=== PATIENT | male | born 1945 | race Caucasian/White ===

== ENCOUNTER 2020-01-23 07:50 | Inpatient (IN) | payer MEDICARE ==
[~2020-01-23] VITALS: Ht 185.4 cm; Wt 91.5 kg
[2020-01-23 07:59] VITALS: BP 126/90
[2020-01-23 08:08] LABS: ABSOLUTE BASOPHILS 0.1 thou/uL (0.0-0.2); ABSOLUTE EOSINOPHILS 0.4 thou/uL (0.0-0.7); ABSOLUTE LYMPHOCYTES 1.8 thou/uL (0.8-5.3); ABSOLUTE MONOCYTES 0.7 thou/uL (0.0-1.2); ABSOLUTE NEUTROPHILS 3.7 thou/uL (1.6-8.1); BASOPHILS 1.3 %; EOSINOPHILS 6.5 %; HEMATOCRIT 45.6 % (42.0-52.0); HEMOGLOBIN 16.3 gm/dL (14.0-18.0); LYMPHOCYTES 27.2 %; MCH 33.3 pg (26.0-34.0); MCHC 35.8 g/dL (28.0-37.0); MCV 92.9 fL (80.0-100.0); MONOCYTES 10.5 %; MPV 7.1 fl. (7.2-11.1); NUCLEATED RBCS 0 /100WBC; PLATELET COUNT* 208 thou/uL (150-400); POLYS 54.5 %; RDW-CV 13.4 % (10.5-14.5); WBC 6.8 thou/uL (4.0-11.0)
[2020-01-23 08:17] LABS: CALCIUM 8.4 mg/dL (8.5-10.1); CREATININE 1.7 mg/dL (0.6-1.3); POTASSIUM 4.2 mmol/L (3.5-5.1)
[2020-01-23 08:25] LABS: ALBUMIN 3.7 g/dL (3.4-5.0); MAGNESIUM 1.9 mg/dL (1.8-2.4); TOTAL BILIRUBIN 0.4 mg/dL (<0.1-1.0); TOTAL PROTEIN 6.7 g/dL (6.4-8.2)
[2020-01-23 10:59] VITALS: BP 116/70
[2020-01-23 11:15] VITALS: BP 125/77
[2020-01-23 16:00] VITALS: BP 112/70
[2020-01-23 20:10] VITALS: BP 114/75
[2020-01-24] VITALS: BP 116/61
[2020-01-24 04:00] VITALS: BP 113/77
[2020-01-24 05:08] LABS: HEMATOCRIT 43.2 % (42.0-52.0); HEMOGLOBIN 14.9 gm/dL (14.0-18.0); MCH 32.8 pg (26.0-34.0); MCHC 34.5 g/dL (28.0-37.0); MCV 94.8 fL (80.0-100.0); MPV 7.7 fl. (7.2-11.1); RBC 4.56 mil/uL (4.50-6.00); RDW-CV 13.7 % (10.5-14.5); WBC 7.7 thou/uL (4.0-11.0)
[2020-01-24 05:22] LABS: ALBUMIN 2.9 g/dL (3.4-5.0); ALKALINE PHOSPHATASE 74 U/L (46-116); ANION GAP 4 mmol/L (7-16); BUN 18 mg/dL (7-18); CALCIUM 8.4 mg/dL (8.5-10.1); CHLORIDE 106 mmol/L (98-107); CHOLESTEROL 180 mg/dL (<200); CO2 29 mmol/L (21-32); CREATININE 1.5 mg/dL (0.6-1.3); GLUCOSE 92 mg/dL (70-99); HDL CHOLESTEROL 43 mg/dL (>40); LDL CHOLESTEROL 123 mg/dL (<100); POTASSIUM 4.1 mmol/L (3.5-5.1); SERUM ASSESSMENT CLEAR; SGOT 19 U/L (15-37); SGPT 15 U/L (30-65); SODIUM 139 mmol/L (136-145); TC:HDL 4.2 Ratio (Not establshd); TOTAL BILIRUBIN 0.5 mg/dL (<0.1-1.0); TOTAL PROTEIN 6.2 g/dL (6.4-8.2); TRIGLYCERIDE 70 mg/dL (<150); VLDL 14 mg/dL (<40)
[2020-01-24 08:31] VITALS: BP 104/52
--- NOTE | 2020-01-24 10:34 | EKG ---
[place] [address] ELECTROCARDIOGRAM REPORT Name: JOVAN LEVY Room: [address] ADM IN ..#: [id number] Admission: 01/23/20 Attend Phys: Afia Alcantar, Discharge: Date of : 47 Date of Service: 01/23/20 0750 Report #: [id number] THIS REPORT FOR: //name// [facility] ED Test Date: 2020-01-23 Test Time: 07:50:23 Pat Name: JOVAN LEVY Department: Room: [facility] Gender: M Secretary To The Vice President: : 1945 Requested By: John Vargas Order Number: [id number] MD: Varun Fitzpatrick Measurements Intervals [place] Rate: 66 P: 75 MO: 171 QRS: 60 QRSD: 91 T: 87 QT: 412 QTc: 432 Interpretive Statements Sinus rhythm Left atrial enlargement No previous ECG available for comparison Electronically Signed On 01-24-2020 10:33:10 CDT by Varun Fitzpatrick [email or web address] <ELECTRONICALLY SIGNED> By: Varun Fitzpatrick MD, [facility] 01/24/20 1033 0750 0750 Varun Fitzpatrick MD, [facility] /EPI
[2020-01-24] MEDS ORDERED: ASA81BEC PO (12:20)
[2020-01-24] MEDS ORDERED: LIPITOR40 MG PO (12:21)
[2020-01-24 12:57] VITALS: BP 104/52
--- NOTE | 2020-01-24 13:37 | 2DMMODE ---
[place] [address] 2 D/M-MODE ECHOCARDIOGRAM Name: JOVAN LEVY Room: [address] IN [facility]#: [id number] Admission: 01/23/20 Attend Phys: Afia Alcantar, Discharge: Date of : 47 Date of Service: 01/24/20 1335 Report #: [id number] THIS REPORT FOR: cc: FAM - No family physician/PCP FAM - No family physician/PCP Cornell Ibrahim MD [facility] ~ APPROVED REPORT Study performed: 01/24/2020 10:10:08 EXAM: Comprehensive 2D, Doppler, and color-flow Echocardiogram Patient Location: In-Patient Room #: [facility] Status: routine BSA: 2.15 HR: 60 bpm BP: 104/52 mmHg Rhythm: NSR Other Information Study Quality: Good Indications Dyspnea Chest Pain 2D Dimensions IVSd: 11.68 (7-11mm) LVOT Diam: 22.32 (18-24mm) LVDd: 58.80 mm PWd: 9.63 (7-11mm) Ascending Ao: 40.33 (22-36mm) LVDs: 35.89 (25-40mm) Aortic Root: 34.87 mm Volumes Left Atrial Volume (Systole) LA ESV Index: 26.70 mL/m2 Aortic Valve AoV Peak Nguyễn.: 1.56 m/s AO Peak Gr.: 9.71 mmHg LVOT Max P.89 mmHg AO Mean Gr.: 5.33 mmHg LVOT Mean P.15 mmHg LVOT Max V: 1.11 m/s AO V2 VTI: 38.23 cm LVOT Mean V: 0.66 m/s CHELY (VTI): 3.09 cm2 LVOT V1 VTI: 30.17 [place] [address] 2 D/M-MODE ECHOCARDIOGRAM Name: JOVAN LEVY Room: [address] IN .R.#: [id number] Admission: 01/23/20 Attend Phys: Afia Alcantar, Discharge: Date of : 47 Date of Service: 01/24/20 1335 Report #: [id number] AI [place]: 2.01 m/s2 AI PHT: 651.74 ms Mitral Valve E/A Ratio: 0.73 MV Decel. Time: 358.53 ms MV E Max Nguyễn.: 0.66 m/s MV PHT: 103.97 ms MVA (PHT): 2.12 cm2 TDI E/Lateral E': 7.33 E/Medial E': 7.33 Medial E' Nguyễn.: 0.09 m/s Lateral E' Nguyễn.: 0.09 m/s Pulmonary Valve PV Peak Nguyễn.: 0.81 m/s PV Peak Gr.: 2.62 mmHg Left Ventricle The left ventricle is normal size. There is normal LV segmental wall motion. Mild concentric left ventricular hypertrophy. Left ventricular systolic function is normal. LVEF is 55-60%. Grade I - abnormal relaxation pattern. Right Ventricle The right ventricle is normal size. The right ventricular systolic function is normal. Atria The left atrium size is normal. The right atrium size is normal. Aortic Valve Mild aortic valve sclerosis. Mild aortic regurgitation. There is no aortic valvular stenosis. Mitral Valve The mitral valve is normal in structure. Mild mitral regurgitation. No evidence of mitral valve stenosis. Tricuspid Valve The tricuspid valve is normal in structure. Unable to assess PA pressure. Trace tricuspid regurgitation. Pulmonic Valve The pulmonary valve is normal in structure. [place] [address] 2 D/M-MODE ECHOCARDIOGRAM Name: JOVAN LEVY Room: [address] IN [facility]#: [id number] Admission: 01/23/20 Attend Phys: Afia Alcantar, Discharge: Date of : 47 Date of Service: 01/24/20 1335 Report #: [id number] valvular regurgitation. Great Vessels The aortic root is normal in size. The ascending aorta is mildly dilated. IVC is normal in size and collapses >50% with inspiration. Pericardium There is no pericardial effusion. <Conclusion> The left ventricle is normal size. Mild concentric left ventricular hypertrophy. Left ventricular systolic function is normal. LVEF is 55-60%. Grade I - abnormal relaxation pattern. Mild aortic valve sclerosis. Mild aortic regurgitation. Mild mitral regurgitation. Trace tricuspid regurgitation. The ascending aorta is mildly dilated. IVC is normal in size and collapses >50% with inspiration. <ELECTRONICALLY SIGNED> By: Cornell Ibrahim MD, [facility] 01/24/20 1335 1335 1335 Cornell Ibrahim MD, FACC /INF
--- NOTE | 2020-01-24 14:32 | CARDNUC ---
[place] [address] CARDIAC NUCLEAR IMAGING REPORT Name: JOVAN LEVY Room: [address] IN [facility]#: [id number] Admission: 01/23/20 Attend Phys: Afia Alcantar, Discharge: Date of : 47 Date of Service: 01/24/20 1430 Report #: [id number] THIS REPORT FOR: cc: FAM - No family physician/PCP FAM - No family physician/PCP Cornell Ibrahim MD [facility] ~ APPROVED REPORT Imaging Protocol: Stress Tc-99m/Rest Tc-99m 1 day Study performed: 01/23/2020 14:29:00 Indication: Chest pain, Dyspnea. Patient Location: In-Patient Room #: 223 Stress Tech: Madelaine Mcconnell Stress Nurse: Dejah Park RN Ht: 6 ft 1 in Wt: 199 lbs BSA: 2.15 m2 BMI: 26.25 Medical History Medical History: Angina, Current Smoker, PVD, LE tingling, AAA, Irregular HR, Atherosclerosis, Bradycardia, Tremors/shanking. Medications: ASA 325 Mg. Allergies: No known drug allergies Cardiac Risk Factors: Age, Current Smoker, FHX of CAD, SOB, PVD, AAA, Bradycardia. Previous Cardiac Procedures: None Pretest Chest Pain Characteristics: No chest pain Exercise History: Sedentary Physical Disabilities: Tremors/shaking, Weak legs. Resting Data Rest SPECT myocardial perfusion imaging was performed in supine position 30 minutes following the intravenous injection of 10.4 mCi of Tc-99m Sestamibi. Time of rest injection: 09:55 The images were gated to evaluate regional wall motion and calculate left ventricular ejection fraction. Administration Route: IV Administration Site: Right [place] [address] CARDIAC NUCLEAR IMAGING REPORT Name: JOVAN LEVY Room: [address] IN ..#: [id number] Admission: 01/23/20 Attend Phys: Afia Alcantar, Discharge: Date of : 47 Date of Service: 01/24/20 1430 Report #: [id number] Pharmacologic stress test was performed by injecting Regadenoson 0.4 mg IV push over 10-15 seconds immediately followed by the intravenous injection of 32.6 mCi of Tc-99m Sestamibi. Time of stress injection: 11:40 Administration Route: IV Administration Site: Right AC Heart Rate at time of stress injection: 114 bpm. Gated Stress SPECT was performed 40 minutes after stress injection. The images were gated to evaluate regional wall motion and calculate left ventricular ejection fraction. Prone imaging was performed. Stress Test Details Stress Test: Pharmacologic stress testing performed using 0.4 mg of regadenoson per 5 mL given IV over 10 seconds. Reason for pharmacologic stress test: Leg weakness, tremors/shaking.. HR Max Heart Rate (APMHR): 147 bpm Resting HR: 62 bpm Target HR (85% APMHR): 124 bpm Max HR Achieved: 114 bpm % of APMHR: 77 Recovery HR: 102 bpm BP Resting BP: 121/87 mmHg Max BP: 129/70 mmHg Recovery BP: 114/89 mmHg ECG Resting ECG: Sinus Rhythm Stress ECG: Sinus Tachycardia ST Change: None Arrhythmia: None Recovery ECG: Sinus Rhythm Recovery ST Change: None Recovery Arrhythmia: None Clinical Reason for Termination: Completed protocol Stress Symptoms: Headache, Dyspnea with cough, light feeling in legs/weak. Exercise duration: 00 min 00 sec Exercise capacity: 1.00 METs The patient tolerated walking Lexiscan protocol [place] [address] CARDIAC NUCLEAR IMAGING REPORT Name: JOVAN LEVY Room: [address]#: [id number] Admission: 01/23/20 Attend Phys: Afia Alcantar, Discharge: Date of : 47 Date of Service: 01/24/20 1430 Report #: [id number] Nurse Comments A 74 year old male inpatient presented for a sitting Lexiscan r/t chest pain and dyspnea with LE tingling. Test well tolerated. Recovery unremarkable with PO caffeine. Patient was escorted by staff to Nuclear Medicine for imaging. Patient was stable and stated he felt good at that time. Stress ECG Conclusion The baseline 12-lead EKG shows sinus rhythm without significant ST segment or T-wave abnormality. EKGs obtained during and post walking Lexiscan protocol to sinus rhythm and sinus tachycardia with no significant ST segment or T-wave changes when compared to baseline. Study Quality Study: Good Artifact: Mild Diaphragmatic artifact Study Data At rest, the left ventricular ejection fraction was 67%.. Post stress, the left ventricular ejection was 66%.. TID = 1.01. Perfusion Myocardial perfusion images obtained in the supine position at rest and post walking Lexiscan protocol showed photopenia in the inferior wall that resolves completely with post stress prone imaging consistent with diaphragmatic attenuation artifact. No other significant fixed or reversible defects were identified. Wall Motion Normal left ventricular wall motion. Nuclear Conclusion ECG Findings: negative for ischemia Clinical Findings: negative for ischemia Nuclear Findings: negative for ischemia Exercise Capacity: not assessed Left Ventricular Function: normal Risk Study: low Myocardial perfusion images show no defect to suggest infarct or ischemia. Left ventricular systolic function appears normal on gated studies. This is a low risk study. <Conclusion> [place] [address] CARDIAC NUCLEAR IMAGING REPORT Name: CAMJOVAN Room: [address] IN .R.#: [id number] Admission: 01/23/20 Attend Phys: Afia Alcantar, Discharge: Date of : 47 Date of Service: 01/24/20 1430 Report #: [id number] The baseline 12-lead EKG shows sinus rhythm without significant ST segment or T-wave abnormality. EKGs obtained during and post walking Lexiscan protocol to sinus rhythm and sinus tachycardia with no significant ST segment or T-wave changes when compared to baseline. <ELECTRONICALLY SIGNED> By: Cornell Ibrahim MD, FACC 01/24/20 1430 1430 1430 Cornell Ibrahim MD, FACC /INF
--- NOTE | 2020-01-25 09:20 | CON ---
[address] [address] CONSULTATION Name: JOVAN LEVY Room: [address] IN .R.#: [id number] Admission: 01/23/20 Attend Phys: Afia Alcantar MD Discharge: 01/24/20 Date of : 47 Report #: [id number] THIS REPORT FOR: //name// cc: MAHOGANY Jovel family physician/PCP MAHOGANY - Becka family physician/PCP ~ THIS REPORT FOR: //name// CC: MAHOGANY physician/PCP Afia Alcantar DATE OF SERVICE: 01/24/2020 VASCULAR SURGERY CONSULTATION REQUESTING PHYSICIAN: Dr. Afia Alcantar. REASON FOR CONSULTATION: Abdominal aortic aneurysm. HISTORY OF PRESENT ILLNESS: The patient is a very pleasant 74-year-old male who presents with chest pain and undergoing cardiac workup. He also has weakness of his lower extremities at times. He underwent a CTA dissection protocol, which showed internal finding of a 3.5 cm abdominal aortic aneurysm. 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 He denies any left arm pain or weakness. He denies any abdominal pain or back pain. His chest pain has resolved. REVIEW OF SYSTEMS: A 12-point review of systems is reviewed and negative as per HPI. ALLERGIES: No known drug allergies. PAST MEDICAL HISTORY: None. PAST SURGICAL HISTORY: None. MEDICATIONS: None. SOCIAL HISTORY: The patient smokes 2 packs per day. Denies alcohol or drug use. PHYSICAL EXAMINATION: GENERAL: The patient in no acute distress. He is alert and oriented. VITAL SIGNS: Afebrile. Vital signs stable. HEENT: Normocephalic, atraumatic. NECK: Supple. HEART: Regular. [address] [address] CONSULTATION Name: JOVAN LEVY Room: [address]#: [id number] Admission: 01/23/20 Attend Phys: Afia Alcantar MD Discharge: 01/24/20 Date of : 47 Report #: [id number] LUNGS: Equal. ABDOMEN: Soft, nontender, nondistended. EXTREMITIES: Warm and well perfused. NEUROLOGIC: Grossly intact. ASSESSMENT: Asymptomatic abdominal aortic aneurysm, small. RECOMMENDATION: Recommend an AAA duplex in 6 months. The patient [place] from [place]. I would recommend he find a vascular surgeon in his home town to follow this for him. If he wishes to come back and see us, we are happy to see him here. Thank you very much for involving me in the care of this very pleasant patient. Please feel free to call me if you have any questions or concerns. <ELECTRONICALLY SIGNED> By: Mason Schulte DO 01/25/20 0920 1457 [id number] Sunshine MD /jorgito
--- NOTE | 2020-01-25 12:56 | CON ---
[facility] [address] [place] [address] CONSULTATION Name: JOVAN LEVY Room: [address] IN M.R.#: [id number] Admission: 01/23/20 Attend Phys: Afia Alcantar MD Discharge: 01/24/20 Date of : 47 Report #: [id number] THIS REPORT FOR: //name// cc: MAHOGANY Jovel family physician/PCP MAHOGANY - No family physician/PCP ~ THIS REPORT FOR: //name// CC: MAHOGANY physician/PCP Afia Alcantar DATE OF SERVICE: 01/23/2020 INDICATION: Chest pain and leg weakness. HISTORY OF PRESENT ILLNESS: The patient is a 74-year-old gentleman with no prior significant medical history. 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 He was at a local truck stop yesterday when he noted leg weakness and difficulty with ambulation. He woke yesterday morning with chest pain as well and called EMS. The patient was brought to the hospital for evaluation. Chest pain has resolved and was brief in duration. The pain was not associated with activity. He denied any diaphoresis. He has chronic shortness of breath. The patient ruled out for myocardial infarction with serial enzymes. EKG was not remarkable. CARDIAC RISK FACTORS: Include tobacco use with smoking a pack daily and family history of coronary artery disease. Lipid status is unknown. PAST MEDICAL HISTORY: Per the patient none. Workup here in the hospital as far shows evidence of aortic atherosclerosis and abdominal aortic aneurysm. CURRENT MEDICATIONS: None. ALLERGIES: None. SOCIAL HISTORY: The patient smokes a pack of cigarettes daily. He has not had alcohol in 30 years. He is an mvub-faj-vqjd regional owner operator truck driver. FAMILY HISTORY: The patient's dad and brother both had myocardial infarctions. REVIEW OF SYSTEMS: A 14-point review of systems is positive for nonproductive cough, chest discomfort and shortness of breath as outlined above, episode of syncope a year ago, he wears dentures. Otherwise, 14-point review of systems was unremarkable. PHYSICAL EXAMINATION: VITAL SIGNS: Stable. Blood pressure 125/77, pulse is 57 [place] [address] CONSULTATION Name: JOVAN LEVY Room: [address]#: [id number] Admission: 01/23/20 Attend Phys: Afia Alcantar MD Discharge: 01/24/20 Date of : 47 Report #: [id number] GENERAL: This is a pleasant elderly gentleman in no distress. Mood and affect appropriate. HEENT: Extraocular muscles intact. Mucous membranes are moist. NECK: Shows no jugular venous distention. I do not appreciate carotid bruit. CHEST: Reveals diminished breath sounds throughout without wheezes or rales. CARDIOVASCULAR: Reveals a regular rhythm with normal S1, S2. I do not appreciate gallop or murmur. ABDOMEN: Reveals normal bowel sounds. The abdomen is soft, nontender. EXTREMITIES: Shows no edema. SKIN: Dry. LABORATORY DATA: Reviewed. Sodium 140, potassium 4.2, chloride 105, bicarbonate 31, BUN 21, creatinine 1.7, serum glucose 109. LFTs are within normal limits. Troponin is less than 0.06 on 3 separate occasions. Lipid profile is pending. White blood cell count 6.8, hemoglobin 16.3, platelet count 208,000. Chest x-ray shows no acute cardiopulmonary abnormality. CT of the head showed chronic changes, but no acute processes. RADIOLOGICAL DATA: CT of the chest and abdomen showed atherosclerotic calcific plaquing of the thoracic and abdominal aorta with ectasia of the ascending aorta with 3.5 cm infrarenal abdominal aortic aneurysm. 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 Right renal atrophy. IMPRESSION AND RECOMMENDATIONS: 1. Chest pain suspicious for angina. The patient will have a noninvasive stress test in the morning. Further intervention pending the results of that study. 2. Chronic tobacco use, cessation advised. 3. Abdominal aortic aneurysm, small in size. Recommend annual surveillance. 4. Atherosclerosis. Check fasting lipid profile. Start daily aspirin. 5. Peripheral vascular disease. ABIs have been obtained and are pending. <ELECTRONICALLY SIGNED> By: Cornell Ibrahim MD, FACC 01/25/20 1256 1433 1914Cornell Ibrahim MD, FACC /nt
== END 2020-01-24 17:15 | disposition home or self-care (01) | DRG 300 ==
LOC: M.ERS 07:50 → M.2W 10:04 → M.TBA-ER 10:04 → M.2W 11:06
PROVIDERS: Emergency Medicine Emergency Medical Services; ADMIT Internal Medicine
DX: I73.9 Peripheral vascular disease, unspecified (principal); N17.9 Acute kidney failure, unspecified; N28.0 Ischemia and infarction of kidney; R07.9 Chest pain, unspecified; F17.210 Nicotine dependence, cigarettes, uncomplicated; I71.4 Abdominal aortic aneurysm, without rupture; I70.90 Unspecified atherosclerosis; I72.2 Aneurysm of renal artery; Z79.82 Long term (current) use of aspirin; Z82.49 Family history of ischemic heart disease and other diseases of the circulatory system